=== PATIENT | male | born 1990 | race Caucasian/White ===

== ENCOUNTER 2017-03-23 01:33 | Emergency (ER) | payer OTHER ==
[2017-03-23 01:54] VITALS: BP 135/78
--- NOTE | 2017-03-23 01:55 | ED Physician Documentation ---
Skin Rash - HISTORIAN Historian: patient - HPI Chief Complaint: Skin Rash Onset: hours Timing: still present Duration: worse Location: generalized Quality: itchy Identified Cause?: No Where: home Further Comments: yes (Started to have a rash in his armpits earlier tonight, now has spread to larose and extremities, itching, no vesiculation. Yesterday was [place] the [place], did not think that he got into anything.) - ROS CONST: none - PAST HX Past History: none Other History: none, allergy to poison christian Allergies/Adverse Reactions: Allergies Allergy/AdvReac Type Severity Reaction Status Date / Time Penicillins Allergy Unknown Verified 03/23/17 01:44 Home Medications: Ambulatory Orders Medication Instructions Recorded NK [NK] 03/23/17 - SOCIAL HX Smoking History: greater than 1 pack/day Alcohol Use: none Drug Use: none - FAMILY HX Family History: none - VITAL SIGNS Vital Signs: Vital Signs Temp Pulse Resp BP Pulse Ox 88 16 135/78 100 03/23/17 01:35 03/23/17 01:35 03/23/17 01:35 03/23/17 01:35 - REVIEWED ASSESSMENTS Nursing Assessment Reviewed: Yes Vitals Reviewed: Yes ED Results Lab/Radiology - Orders Orders: ED Orders Category Date Time Status Dexamethasone Sod Phosphate [Decadron] Med 03/23/17 02:01 Discontinued 4 mg IM NOW ONE diphenhydrAMINE HCL [Benadryl] Med 03/23/17 02:03 Discontinued 25 mg PO NOW ONE methylPREDNISolone ACETATE [Depo-Medrol] Med 03/23/17 02:01 Discontinued 80 mg IM NOW ONE Skin Rash Physical Exam - EXAM General Appearance: no acute distress Skin: other (hives) Location: generalized Character: asymmetric, patchy, urticarial. No: vesicular Symptoms: induration. No: weeping EENT: eyes nml inspection, lips nml, gums nml, pharynx nml Neck: trachea midline, no swelling Respiratory: no resp distress, chest non-tender, breath sounds normal. No: wheezes, rales, rhonchi CVS: reg. rate & rhythm, heart sounds nml Neuro/Psych: mood/affect nml, disoriented Discharge Clincal Impression: Hives Additional Instructions: Think of things that you may have come in contact with that might have caused the rash. Take some benadryl 25-50 mg every 4-6 hours as needed for itching. May take Zantac (ranitidine) to help with the itching also. Return to the ED if you develop some mouth swelling or difficulties with breathing. Home Medications: Ambulatory Orders NK [NK] 03/23/17 Condition: Stable Disposition: 01 HOME, SELF-CARE Decision to Admit: NO Date of Decison to Admit: 03/23/17 Decision Time: 02:06
[2017-03-23] MEDS: methylPREDNISolone ACETATE 80 MG/ML VIAL IM ONE (02:20)
[2017-03-23] MEDS: DEXAMETHASONE SOD PHOS 4 MG/ML VIAL IM ONE (02:20)
[2017-03-23] MEDS: diphenhydrAMINE HCL 25 MG TABLET PO ONE (02:21)
== END 2017-03-23 02:40 | disposition home or self-care (01) ==
LOC: ED 01:33
DX: L50.9 Urticaria, unspecified (principal)
CPT/HCPCS: J1040; J1100; Q0163; 96372; 99283